=== PATIENT | female | born 1980 | race African-American/Black ===

== ENCOUNTER 2017-06-24 13:08 | Emergency (ER) | payer SELFPAY ==
[2017-06-24] MEDS ORDERED: HYDROmorphone 1 MG/ML SYRINGE IM STA (13:34)
[2017-06-24] MEDS ORDERED: KETOROLAC 60 MG/2 ML VIAL IM STA (13:34)
--- NOTE | 2017-06-24 13:36 | ED Physician Documentation ---
PD HPI BACK PAIN - Stated complaint Stated Complaint: BACK PX - Chief complaint Chief Complaint: Back Pain - History obtained from History obtained from: Patient - History of Present Illness Timing - onset: Other (3 days of right lower back pain radiating into the right leg, not past the thigh associated with numbness of the right thigh but no saddle anesthesia or fevers.) Review of Systems Constitutional: denies: Fever, Chills GI: reports: Nausea. 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 - Present Medications Home Medications: Ambulatory Orders Medication Instructions Recorded Confirmed Cyclobenzaprine [Flexeril] 10 mg PO TID PRN #20 tablet 06/24/17 HYDROcod/ACETAM 5/325 [Wellington 5/325] 1 - 2 ea PO Q6H PRN #15 tablet 06/24/17 predniSONE [Deltasone] 20 mg PO [id number] #21 tab 06/24/17 - Allergies Allergies/Adverse Reactions: Allergies Allergy/AdvReac Type Severity Reaction Status Date / Time morphine Allergy Intermediate Rash Verified 06/24/17 13:25 - Social History Does the pt smoke?: Yes Smoking Status: Current every day smoker Does the pt drink ETOH?: Yes Does the pt have substance abuse?: No Substance Use and Type: Marijuana - Immunizations Immunizations are current?: Yes - POLST Patient has POLST: No PD ED PE NORMAL - Vitals Vital signs reviewed: Yes - General General: Alert and oriented X 3, No acute distress - Abdomen Abdomen: Normal bowel sounds, Soft, Non tender - Back Back: Other (Tender around L5 in the right sciatic notch) - Extremities Extremities: Other (She has diminished sensation especially over the right thigh , not insensate though, she also has a diminished right Achilles reflex compared to the left but not absent, patellar reflexes are symmetric. Right leg function is weak in flexion and extension at the knee but that seems limited by pain, the only thing that seems truly weak is great toe dorsiflexion. And that is only partially weak.) - Neuro Neuro: Alert and oriented X 3, Normal speech Results - Vitals Vitals: Vital Signs - 24 hr 06/24/17 13:18 Temperature 36.7 C Heart Rate 76 Respiratory 16 Rate Blood Pressure 133/77 H O2 Saturation 98 Oxygen O2 Source Room air PD MEDICAL DECISION MAKING - ED course ED course: This patient has seemingly uncomplicated musculoskeletal back pain. The patient has no "red flags." Specifically denies IV drug use, fevers, incontinence, saddle anesthesia. Spinal epidural abscess was considered, given that the patient has no fever, is not diabetic, has no spinal tenderness, does not use IV drugs, and has no bilateral neurologic symptoms, the diagnosis of spinal epidural abscess is considered exceedingly unlikely. Departure - Departure Disposition: Home, Self Care Clinical Impression: Sciatica Qualifiers: Laterality: right Qualified Code(s): M54.31 - Sciatica, right side Condition: Good Record reviewed to determine appropriate education?: Yes Instructions: ED Back Care Tips, ED Sciatica Prescriptions: Cyclobenzaprine [Flexeril] 10 mg PO TID PRN #20 tablet PRN Reason: Pain HYDROcod/ACETAM 5/325 [Wellington 5/325] 1 - 2 ea PO Q6H PRN #15 tablet PRN Reason: Pain predniSONE [Deltasone] 20 mg PO [id number] #21 tab Comments: Call your doctor to arrange a follow-up appointment, make the next available appointment. In the interim, return anytime if worse or if new symptoms develop. Your blood pressure was elevated today on check into the emergency department. This does not mean that you have hypertension, it is a common phenomenon to come to the emergency department and have elevated blood pressure. I recommend that you see your primary care physician within the week to have it rechecked when you are feeling better. Do not drink or drive while taking narcotic pain medication. Note that many narcotic pain relievers also contain Tylenol/acetaminophen. Please ensure that your total dose of acetaminophen from all sources does not exceed 3 g (3000 mg) per day. You may get constipated while on this medication. Take a stool softener such as Colace twice a day while you are on it. Also add an [id number] laxative such as senna or MiraLAX on any day that you do not have a bowel movement. If you received a narcotic pain medication or sedative while in the emergency department, do not drive for the next 24 hours. Forms: Activity restrictions
[2017-06-24 13:38] VITALS: BP 133/77
== END 2017-06-24 13:57 | disposition home or self-care (01) ==
LOC: ED 13:08
DX: M54.31 Sciatica, right side (principal); R03.0 Elevated blood-pressure reading, without diagnosis of hypertension; F17.200 Nicotine dependence, unspecified, uncomplicated
CPT/HCPCS: 96372; 99283; J1170; 81025

== ENCOUNTER 2018-03-25 18:39 | Emergency (ER) | payer SELFPAY ==
[2018-03-25] MEDS ORDERED: KETOROLAC 60 MG/2 ML VIAL IVP STA (20:08)
[2018-03-25] MEDS ORDERED: diphenhydrAMINE INJ 50 MG/ML VIAL IVP STA (20:08)
[2018-03-25] MEDS ORDERED: PROCHLORPERAZINE 10 MG/2 ML VIAL IVP STA (20:08)
[2018-03-25] MEDS ORDERED: SODIUM CHLORIDE 0.9% 1,000 ML IV ONE (20:08)
--- NOTE | 2018-03-25 20:21 | ED Physician Documentation ---
History of Present Illness - Stated complaint Stated Complaint: HEADACHE - Chief complaint Chief Complaint: Neuro - History obtained from History obtained from: Patient, Friend - History of Present Illness Timing: Today Pain level max: 9 Pain level now: 9 Improved by: nothing Worsened by: light, sound - Additonal information Additional information: 37-year-old female with chronic migraine headaches who presents to the emergency department with her usual migraine headache. Started approximately 15 hours prior to arrival. Took Excedrin today without relief. 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 : Chronic bladder infection, Kidney stones Musculoskeletal: None, Chronic back pain - Past Surgical History 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 - Present Medications Home Medications: Ambulatory Orders Medication Instructions Recorded Confirmed No Known Home Medications 03/25/18 03/25/18 - Allergies Allergies/Adverse Reactions: Allergies Allergy/AdvReac Type Severity Reaction Status Date / Time morphine Allergy Intermediate Rash Verified 03/25/18 18:47 - Social History Does the pt smoke?: Yes Smoking Status: Current every day smoker Does the pt drink ETOH?: Yes Does the pt have substance abuse?: No - Immunizations Immunizations are current?: Yes - POLST Patient has POLST: No PD ED PE NORMAL - Vitals Vital signs reviewed: Yes - General General: Alert and oriented X 3, Other (Appears in pain, lying in a darkened room) - HEENT HEENT: PERRL, EOMI, Moist mucous membranes - Neck Neck: Supple, no meningeal sign - Cardiac Cardiac: RRR, Strong equal pulses - Respiratory Respiratory: No respiratory distress, Clear bilaterally - Abdomen Abdomen: Soft, Non tender, Non distended - Derm Derm: Warm and dry - Neuro Neuro: Alert and oriented X 3, 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 Given Toradol, Compazine a nd Benadryl. Headache resolved. She request to go home at this time. No evidence of subarachnoid hemorrhage. Patient counseled regarding signs and symptoms for which I believe and urgent re-evaluation would be necessary. Patient with good understanding of and agreement to plan and is comfortable going home at this time This document was made in part using voice recognition software. While efforts are made to proofread this document, sound alike and grammatical errors may occur. Departure - Departure Disposition: 01 Home, Self Care Clinical Impression: Migraine Qualifiers: Migraine type: unspecified Status migrainosus presence: without status mi grainosus Intractability: not intractable Qualified Code(s): G43.909 - Migraine, unspecified, not intractable, without status migrainosus Condition: Good Instructions: ED Headache Migraine Follow-Up: your,doctor as needed [Other] Comments: Go home and rest tonight. Return if you worsen. Discharge Date/Time: 03/25/18 21:45
[2018-03-25 21:33] VITALS: BP 105/60
== END 2018-03-25 21:45 | disposition home or self-care (01) ==
LOC: ED 18:39
DX: G43.909 Migraine, unspecified, not intractable, without status migrainosus (principal); F17.200 Nicotine dependence, unspecified, uncomplicated
CPT/HCPCS: 96361; 96374; 96375; 99283; J1200

== ENCOUNTER 2019-06-05 21:48 | Emergency (ER) | payer MEDICAID ==
--- NOTE | 2019-06-05 22:07 | ED Physician Documentation ---
PD HPI BACK PAIN - Stated complaint Stated Complaint: BK PX - Chief complaint Chief Complaint: Back Pain - History obtained from History obtained from: Patient - History of Present Illness Timing - onset: Yesterday Timing - duration: Days (2) Timing - details: Gradual onset, Still present, Waxing and waning Location: Lower, Right, Left Quality: Pain, Spasm Associated symptoms: No: Fever, Weakness, Numbness, Incontinent of urine Worsened by: Movement, Twisting Contributing factors: Twisting (She is not aware of an abrupt injury but noted onset of her low back hurting with twisting and bending yesterday and was having spasms and pain last night and some through the day today. It is worsened at this evening with increased spasms. She denies any radiation to the legs. She denies any lower extremity paresis or paresthesias nor any incontinence of urine. She has had low back pains episodically in the past but typically has good range of motion and exercises regularly.). No: Lifting, Trauma Recently seen: Not recently seen Review of Systems Constitutional: denies: Fever, Chills Cardiac: denies: Chest pain / pressure, Palpitations Respiratory: denies: Dyspnea, Cough GI: denies: Abdominal Pain, Nausea, Vomiting, Diarrhea : denies: Dysuria, Frequency, Incontinent, Discharge Skin: denies: Rash, Lesions Musculoskeletal: reports: Back pain. 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 - Present Medications Home Medications: Ambulatory Orders Medication Instructions Recorded Confirmed Naproxen 500 mg PO BID #20 tablet 06/05/19 Oxycodone HCl/Acetaminophen 1 each PO Q6H PRN #18 tablet 06/05/19 [Percocet 5-325 mg Tablet] Tizanidine HCl 4 mg PO TID PRN #25 capsule 06/05/19 dexAMETHasone [Decadron] 4 mg PO DAILY #5 tablet 06/05/19 - Allergies Allergies/Adverse Reactions: Allergies Allergy/AdvReac Type Severity Reaction Status Date / Time morphine Allergy Intermediate Rash Verified 06/05/19 21:57 - Social History Does the pt smoke?: Yes Smoking Status: Current every day smoker Does the pt drink ETOH?: Yes Does the pt have substance abuse?: No - Immunizations Immunizations are current?: Yes - POLST Patient has POLST: No PD ED PE NORMAL - Vitals Vital signs reviewed: Yes - General General: Alert and oriented X 3, Well developed/nourished, Other (She appears significantly uncomfortable with guarded range of motion of the low back.) - Cardiac Cardiac: RRR, No murmur - Respiratory Respiratory: Clear bilaterally - Abdomen Abdomen: Soft, Non tender - Back Back: No CVA TTP, No spinal TTP (She is not particularly tender in the midline spine itself but in the muscles bilaterally at the lower lumbar area. There is no rash nor sores noted. She has normal reflexes at both knees. She has symmetric sensation dermatome only in the lower extremities. She has good flexion extension at the ankles and toes.) - Derm Derm: Normal color, Warm and dry, No rash - Neuro Neuro: Alert and oriented X 3, No motor deficit, No sensory deficit, Normal speech Results - Vitals Vitals: Vital Signs - 24 hr 06/05/19 06/05/19 21:50 23:28 Temperature 36.8 C 36.6 C Heart Rate 104 H 77 Respiratory 20 14 Rate Blood Pressure 113/69 107/87 H O2 Saturation 98 99 Oxygen O2 Source Room air PD MEDICAL DECISION MAKING - ED course Complexity details: considered differential (Low back pain and spasms without any particular injury and no red flags otherwise.), d/w patient Departure - Departure Disposition: 01 Home, Self Care Clinical Impression: Spasm of muscle of lower back Condition: Stable Record reviewed to determine appropriate education?: Yes Instructions: ED Low Back Pain Injury Prescriptions: dexAMETHasone [Decadron] 4 mg PO DAILY #5 tablet Naproxen 500 mg PO BID #20 tablet Oxycodone HCl/Acetaminophen [Percocet 5-325 mg Tablet] 1 each PO Q6H PRN #18 tablet PRN Reason: pain Tizanidine HCl 4 mg PO TID PRN #25 capsule PRN Reason: Spasms Comments: Heat and gentle stretching for the low back to lessen spasms and stiffness. Use anti-inflammatories such as naproxen twice daily for the next 7 to 10 days. Also Decadron steroid anti-inflammatory daily for 5 more days. To that add tizanidine muscle relaxant for spasms and stiffness. To that add Tylenol or Percocet if needed for worse pain. Physical treatments such as massage or chiropractic are good as well for back pain like this. Recheck if not improving well over the next few days and return sooner if worsening. Discharge Date/Time: 06/05/19 23:57
[2019-06-05] MEDS ORDERED: HYDROmorphone 1 MG/ML CARPUJECT IM STA (22:26)
[2019-06-05] MEDS ORDERED: KETOROLAC 60 MG/2 ML VIAL IM STA (22:26)
[2019-06-05] MEDS ORDERED: DEXAMETHASONE 10 MG/ML VIAL PO STA (22:27)
[2019-06-05] MEDS ORDERED: CHERRY SYRUP 10 ML UDC PO ONE (22:27)
[2019-06-05] MEDS ORDERED: methocarbamoL 500 MG TABLET PO STA (22:27)
[2019-06-05] MEDS ORDERED: oxyCODONE/ACET 5/325 Prepack 4 PO STA (22:28)
[2019-06-05] MEDS ORDERED: HYDROmorphone 2 MG/ML VIAL IM STA (23:12)
[2019-06-05] MEDS ORDERED: diazePAM 5 MG TABLET PO STA (23:12)
[2019-06-05 23:28] VITALS: BP 107/87
== END 2019-06-05 23:57 | disposition home or self-care (01) ==
LOC: ED 21:48
DX: M62.830 Muscle spasm of back (principal); F17.200 Nicotine dependence, unspecified, uncomplicated
CPT/HCPCS: 96372; 99283; 99284; A9270; J1170

== ENCOUNTER 2020-06-19 08:04 | Emergency (ER) | payer MEDICAID ==
--- NOTE | 2020-06-19 08:25 | ED Physician Documentation ---
PD HPI HEADACHE - Stated complaint Stated Complaint: MIGRAINE - Chief complaint Chief Complaint: General - History obtained from History obtained from: Patient - History of Present Illness Timing - onset: How many days ago (2) Timing - onset during: Rest Timing - duration: Days (2) Timing - details: Gradual onset, Still present Worst headache ever?: No: Worst headache ever? (similar to other migraines. Infrequent though.) Location: Back, Left Quality: Throbbing, Aching. No: Thunderclap Associated symptoms: Nausea, Other (also with sore throat and mild cough). No: Fever, Stiff neck, Vomiting Improved by: Rest Worsened by: Light Contributing factors: No: Hypertension, Recent illness Similar symptoms before: Has not had sx before Recently seen: Not recently seen Review of Systems Constitutional: reports: Chills, Myalgias. denies: Fever Nose: denies: Rhinorrhea / runny nose, Congestion, Sinus pressure / pain Throat: reports: Sore throat Cardiac: denies: Chest pain / pressure Respiratory: reports: Cough. denies: Dyspnea GI: reports: Nausea. 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 - Present Medications Home Medications: Ambulatory Orders Medication Instructions Recorded Confirmed Naproxen 500 mg PO BID #20 tablet 06/05/19 Oxycodone HCl/Acetaminophen 1 each PO Q6H PRN #18 tablet 06/05/19 [Percocet 5-325 mg Tablet] Tizanidine HCl 4 mg PO TID PRN #25 capsule 06/05/19 dexAMETHasone [Decadron] 4 mg PO DAILY #5 tablet 06/05/19 Ondansetron Odt [Zofran] 4 mg TL Q6H PRN #10 tablet 06/19/20 cephALEXin [Keflex] 500 mg PO TID #20 capsule 06/19/20 dexAMETHasone [Decadron] 4 mg PO DAILY #5 tablet 06/19/20 - Allergies Allergies/Adverse Reactions: Allergies Allergy/AdvReac Type Severity Reaction Status Date / Time morphine Allergy Intermediate Rash Verified 06/19/20 08:19 - Social History Does the pt smoke?: Yes Smoking Status: Current every day smoker Does the pt drink ETOH?: Yes Does the pt have substance abuse?: No - Immunizations Immunizations are current?: Yes - POLST Patient has POLST: No PD ED PE NORMAL - Vitals Vital signs reviewed: Yes - General General: Alert and oriented X 3, Well developed/nourished - HEENT HEENT: Moist mucous membranes. No: Pharynx benign (mild redness without exudate. 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 ), considered differential (has sore throat and works at [employer], so concerned about COVID. Her daughter is in ER with sore throat too and tests positive for GAS. ), d/w patient Departure - Departure Disposition: 01 Home, Self Care Clinical Impression: Pharyngitis, acute Qualifiers: Pharyngitis/tonsillitis etiology: unspecified etiology Qualified Code(s): J02.9 - Acute pharyngitis, unspecified Migraine headache Qualifiers: Migraine type: without aura Status migrainosus presence: without status migrainosus Intractability: not intractable Qualified Code(s): G43.009 - Migraine without aura, not intractable, without status migrainosus Condition: Stable Record reviewed to determine appropriate education?: Yes Instructions: ED Strep Pharyngitis Poss Prescriptions: dexAMETHasone [Decadron] 4 mg PO DAILY #5 tablet cephALEXin [Keflex] 500 mg PO TID #20 capsule Ondansetron Odt [Zofran] 4 mg TL Q6H PRN #10 tablet PRN Reason: Nausea / Vomiting Comments: Stay well-hydrated through the day today. Tylenol or ibuprofen if needed for mild headache. Ondansetron for nausea. Your initial strep test is negative but the culture will result in a couple of days along with the Covid test. We will treat for potential strep with cephalexin and Decadron given that your daughter tested positive for strep. I would anticipate improvement over the next couple of days. Regarding this drop concern, you would be okay to work again after 2 days. Discharge Date/Time: 06/19/20 11:03
[2020-06-19] MEDS ORDERED: PROCHLORPERAZINE 10 MG/2 ML VIAL IVP STA (08:44)
[2020-06-19] MEDS ORDERED: SODIUM CHLORIDE 0.9% 1,000 ML IV STA (08:44)
[2020-06-19] MEDS ORDERED: DEXAMETHASONE 10 MG/ML VIAL IVP STA (08:44)
[2020-06-19] MEDS ORDERED: KETOROLAC 30 MG/ML VIAL IVP STA (08:44)
[2020-06-19] MEDS ORDERED: cephALEXin 250 MG CAPSULE PO STA (09:28)
[2020-06-19 09:50] LABS: RAPID STREP SCREEN Negative (Negative)
[2020-06-19 10:56] VITALS: BP 149/87
== END 2020-06-19 11:03 | disposition home or self-care (01) ==
LOC: ED 08:04
DX: G43.009 Migraine without aura, not intractable, without status migrainosus (principal); J02.9 Acute pharyngitis, unspecified; F17.200 Nicotine dependence, unspecified, uncomplicated; Z20.822 Contact with and (suspected) exposure to COVID-19
CPT/HCPCS: 87070; 87077; 87430; 87635; 96374; 99283; 99284; A9270